=== PATIENT | male | born 1945 | race Caucasian/White ===

== ENCOUNTER 2024-03-22 13:13 | Inpatient (IN) | payer OTHER ==
[~2024-03-22] VITALS: Ht 182.9 cm; Wt 82.8 kg
[2024-03-22 01:00] VITALS: BP 137/71; PULSE 50; RESP 18; TEMP 97.6; O2SAT 94
[~2024-03-22 13:13] MED LIST: AMLO1TAB22 PO; ENAL1TAB42 PO; GEMF-66 PO; HYDR-4833 PO; LEV500T PO; METF-370 PO; SIMV40TA18 PO
--- NOTE | 2024-03-22 13:34 | ED.PDOC ---
HPI Comments 78Y M with PMHx DM, HTN, HLD, cholecystectomy, and tonsillectomy presents to ED for chief complaint chest pain x2hrs. Pt states pain began while at rest and describes it as "being sore". Pt denies SOB, nausea, vomiting, and diarrhea. No known allergies. Chief Complaint: Chest Pain Time Seen by MD: 13:25 Primary Care Provider: FARIDAO Reviewed Notes: Medications, Allergies Allergies: Coded Allergies: NO KNOWN ALLERGIES (Unverified , 03/06/14) Home Meds Active Scripts Levofloxacin (LEVAQUIN TABLET) 500 Mg Tb, 500 MG PO DAILY, #9 TAB Prov:MERCEDES WATERS MD 04/04/14 Reported Medications Hydrocodone-Acetaminophen ([place] 5/325MG) 1 Tab Tb, 1 TAB PO Q6HP PRN, #20 TAB 04/04/14 Hydrocodone-Acetaminophen ([place] 5/325MG) 1 Tab Tb, 1 TAB PO Q6HP PRN, #20 TAB 04/04/14 Hydrocodone-Acetaminophen ([place] 5/325MG) 1 Tab Tb, 1 TAB PO Q6HP PRN, #20 TAB 04/04/14 Simvastatin (Simvastatin) 40 Mg Tab, 40 MG PO DAILY for 30 Days 04/03/14 Gemfibrozil (Gemfibrozil) 600 Mg Tab, 600 MG PO BID for 30 Days 04/03/14 Metformin Hydrochloride (Metformin Hcl) 500 Mg Tab, 500 MG PO IBID for dm2 for 30 Days, MG 04/03/14 Amlodipine Besylate (Amlodipine Besylate) 5 Mg Tab, 10 MG PO DAILY for htn for 30 Days, MG 04/03/14 Enalapril Maleate (Enalapril Maleate) 2.5 Mg Tab, 10 MG PO DAILY for 30 Days, MG 04/03/14 Information Source: Patient Mode of Arrival: Ambulatory Severity: Mild Timing: Hours Duration: Since onset Location: Chest (L) Radiation: No Radiation Quality: Other (sore) Onset: At Rest Cardiac Risk Factors: Hyperlipidemia, HTN, Diabetes PE Risk Factors: None History of: None Modifying Factors: Nothing Associated Signs and Symptoms: None Past Medical History PAST MEDICAL HISTORY: DM, High Lipids, HTN Surgical History: Cholecystectomy, Tonsillectomy Family History Family History: Unobtainable Social History Smoker: Non-Smoker Alcohol: Occasionally Drugs: Denies Drug Use Lives In: Home Constitutional: denies: chills, diaphoresis, fatigue, fever, malaise, sweats, weakness, others EENTM: denies: blurred vision, double vision, ear bleeding, ear discharge, ear drainage, ear pain, ear ringing, eye pain, eye redness, hearing loss, mouth pain, mouth swelling, nasal discharge, nose bleeding, nose congestion, nose pain, photophobia, tearing, throat pain, throat swelling, voice changes, others Respiratory: denies: cough, hemoptysis, orthopnea, SOB at rest, shortness of breath, SOB with excertion, stridor, wheezing, others Cardiovascular: reports: chest pain; denies: dizzy spells, diaphoresis, Dyspnea on exertion, edema, irregular heart beat, left arm pain, lightheadedness, palpitations, PND, syncope, others Gastrointestinal: denies: abdomen distended, abdominal pain, blood streaked bowels, constipated, diarrhea, dysphagia, difficulty swallowing, hematemesis, melena, nausea, poor appetite, poor fluid intake, rectal bleeding, rectal pain, vomiting, others Genitourinary: denies: burning, dysuria, flank pain, frequency, hematuria, incontinence, penile discharge, penile sore, pain, testicle pain, testicle swelling, urgency, others Neurological: denies: dizziness, fainting, headache, left sided numbness, left sided weakness, numbness, paresthesia, pre-existing deficit, right sided numbness, right sided weakness, seizure, speech problems, tingling, tremors, weakness, others Musculoskeletal: denies: back pain, gout, joint pain, joint swelling, muscle pain, muscle stiffness, neck pain, others Integumetry: denies: bruises, change in color, change in hair/nails, dryness, laceration, lesions, lumps, rash, wounds, others Allergic/Immunocompromised: denies: Difficulty Healing, Frequent Infections, Hives, Itching, others Hematologic/Lymphatic: denies: anemia, blood clots, easy bleeding, easy bruising, swollen glands, others Endocrine: denies: excessive hunger, excessive sweating, excessive thirst, excessive urination, flushing, intolerance to cold, intolerance to heat, unexp lained weight gain, unexplained weight loss, others Psychiatric: denies: anxiety, bipolar disorder, depression, hopeless, panic disorder, schizophrenia, sleepless, suicidal, others All Other Systems: Reviewed and Negative Physical Exam General Appearance: No Apparent Distress, Normal HEENT: Normal ENT Inspection, Pharynx Normal, TMs Normal Neck: Full Range of Motion, Non-Tender, Normal, Normal Inspection Respiratory: Chest Non-Tender, Lungs Clear, No Accessory Muscle Use, No Respiratory Distress, Normal Breath Sounds Cardiovascular: No Edema, No JVD, No Murmur, No Gallop, Normal Peripheral Pulse s, Regular Rate/Rhythm Breast Exam: Deferred Gastrointestinal: No Organomegaly, Non Tender, No Pulsatile Mass, Normal Bowel Sounds, Soft Genitalia: Deferred Pelvic: Deferred Rectal: Deferred Extremities: No calf tenderness, Normal capillary refill, Normal inspection, Normal range of motion, Non-tender, No pedal edema Musculoskeletal : Apperance: Normal Neurologic: Alert, classics teacher II-XII nml as Tested, No Motor Deficits, Normal Affect, Normal Mood, No Sensory Deficits Cerebellar Function: Normal Reflexes: Normal Skin: Dry, Normal Color, Warm Lymphatic: No Adenopathy Was a procedure done? Was a procedure done?: No CP Differential Dx Differential Diagnosis: Electrolyte Disorder, Heart Failure X-Ray, Labs, Meds, VS Vital Signs Date Time Temp Pulse Resp B/P (MAP) Pulse Ox O2 Delivery O2 Flow Rate FiO2 03/22/24 16:18 97.4 46 18 138/71 (93) 99 97.4 03/22/24 14:04 49 03/22/24 13:19 97.8 49 18 158/80 (106) 96 Lab Test 03/22/24 14:32 03/22/24 13:29 Range/Units Troponin I High Sensitivity 4 4 </=54 ng/L White Blood Count 7.1 4.4-10.8 10^3/uL Red Blood Count 4.76 4.5-5.90 10^6/uL Hemoglobin 14.5 13.5-17.5 g/dL Hematocrit 43.3 41.0-53.0 % Mean Corpuscular Volume 90.8 80.0-100.0 fL Mean Corpuscular Hemoglobin 30.4 28.0-32.0 pg Mean Corpuscular Hemoglobin Concent 33.4 32.0-36.0 g/dL Red Cell Distribution Width 12.9 11.8-14.3 % Platelet Count 190 140-450 10^3/uL Mean Platelet Volume 7.2 6.9-10.8 fL Neutrophils (%) (Auto) 60.3 37.0-80.0 % Lymphocytes (%) (Auto) 23.3 10.0-50.0 % Monocytes (%) (Auto) 12.1 H 0.0-12.0 % Eosinophils (%) (Auto) 3.5 0.0-7.0 % Basophils (%) (Auto) 0.8 0.0-2.0 % Neutrophils # (Auto) 4.3 1.6-8.6 10 ^3/uL Lymphocytes # (Auto) 1.7 0.4-5.4 10 ^3/uL Monocytes # (Auto) 0.9 0-1.3 10 ^3/uL Eosinophils # (Auto) 0.2 0-0.8 10 ^3/uL Basophils # (Auto) 0.1 0-0.2 10 ^3/uL Nucleated Red Blood Cells 0.0 % Sodium Level 143 136-145 mmol/L Potassium Level 4.3 3.5-5.1 mmol/L Chloride Level 110 H 98-107 mmol/L Carbon Dioxide Level 24 20-31 mmol/L Anion Gap 9 5-15 Blood Urea Nitrogen 10 9-23 mg/dL Creatinine 1.25 0.700-1.30 mg/dL Glomerular Filtration Rate Calc 59 >90 mL/min BUN/Creatinine Ratio 8.0 L 10.0-20.0 Serum Glucose 103 74-106 mg/dL Calcium Level 10.6 H 8.7-10.4 mg/dL Total Bilirubin 0.4 0.2-1.0 mg/dL Aspartate Amino Transferase (AST) 24 13-40 U/L Alanine Aminotransferase (ALT) 21 7-40 U/L Alkaline Phosphatase 104 46-116 U/L Total Protein 7.1 5.7-8.2 g/dL Albumin 4.3 3.2-4.8 g/dL Time of 1ST Reevaluation: 13:55 Reevaluation 1ST: Unchanged Time of 2ND Reevaluation: 17:10 Reevaluation 2ND: Improved Patient Education/Counseling: Diagnosis, Treatment, Prognosis, Need For Follow Up Family Education/Counseling: No Family Present Additional Information Tests ordered and results reviewed: CBC, CMP, Troponin Independent historians include: None. Dr. Mccallum interpreted each of the tests and agrees with the result. Results and treatment discussed with the pt and medical personnel. Departure 1 Departure Time of Disposition: 17:09 Impression: Primary Impression: Unstable angina Additional Impression: Bradycardia Disposition: ADMITTED INPATIENT Admit to: Tele Condition: Stable Critical Care Note Critical Care Time?: Yes (55 min-critical care time only) Critical care comment: due to the real possibility of patient's condition deteriorating, his care requi res my highest attention and readiness to intervene. i assessed the patient, ordered the proper tests and treatments, reassessed him for response, formulated a plan, discussed it with medical personnel, and consultants,. total time include more than 50% face to face contact and does not include any procedures Stability Stability form required: No Heart Score Heart Score: Heart Score Response (Comments) Value History Highly Suspicious 2 EKG Repolarization Disturb 1 Age >65 2 Risk Factors >3 or Hx ASHD 2 Troponin Normal limit 0 Total 7 I personally scribed for JESSIE MCCALLUM MD ([email or web address]) on 03/22/24 at 13:34. Electronically submitted by Marj Diaz ([facility]). JESSIE MCCALLUM MD Mar 22, 2024 13:34
[2024-03-22 13:50] LABS: Basophils # (auto) 0.1 10 ^3/uL (0-0.2); Basophils % (auto) 0.8 % (0.0-2.0); Eosinophils # (auto) 0.2 10 ^3/uL (0-0.8); Eosinophils % (auto) 3.5 % (0.0-7.0); Hematocrit 43.3 % (41.0-53.0); Hemoglobin 14.5 g/dL (13.5-17.5); Lymphocytes # (auto) 1.7 10 ^3/uL (0.4-5.4); Lymphocytes % (auto) 23.3 % (10.0-50.0); Mean Corpuscular Hemoglobin 30.4 pg (28.0-32.0); Mean Corpuscular Hgb Conc. 33.4 g/dL (32.0-36.0); Mean Corpuscular Volume 90.8 fL (80.0-100.0); Monocytes # (auto) 0.9 10 ^3/uL (0-1.3); Monocytes % (auto) 12.1 % (0.0-12.0); Neutrophils # (auto) 4.3 10 ^3/uL (1.6-8.6); Neutrophils % (auto) 60.3 % (37.0-80.0); Platelet Count (auto) 190 10^3/uL (140-450); Red Blood Cells 4.76 10^6/uL (4.5-5.90); Red Cell Distribution Width 12.9 % (11.8-14.3); White Blood Cell 7.1 10^3/uL (4.4-10.8)
[2024-03-22 14:02] LABS: Alanine Aminotransferase 21 U/L (7-40); Albumin 4.3 g/dL (3.2-4.8); Alkaline Phosphatase 104 U/L (46-116); Anion Gap 9 (5-15); Aspartate Aminotransferase 24 U/L (13-40); Blood Urea Nitrogen 10 mg/dL (9-23); Calcium 10.6 mg/dL (8.7-10.4); Carbon Dioxide 24 mmol/L (20-31); Chloride 110 mmol/L (98-107); Glucose 103 mg/dL (74-106); Potassium 4.3 mmol/L (3.5-5.1); Sodium 143 mmol/L (136-145)
[2024-03-22 14:03] LABS: Bilirubin, Total 0.4 mg/dL (0.2-1.0); Total Protein 7.1 g/dL (5.7-8.2)
--- NOTE | 2024-03-22 15:49 | ECG ---
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
[2024-03-22] MEDS ORDERED: NITROGLYCERIN 0.4 MG SL TAB SL PRN (20:45)
[2024-03-22] MEDS ORDERED: ONDANSETRON HCL 4 MG/2 ML VIAL IV PRN (20:45)
[2024-03-22] MEDS ORDERED: MORPHINE SULFATE INJ 2 MG/ml SYRG IV PRN ×2 (20:45)
[2024-03-22] MEDS ORDERED: DOCUSATE SOD 100 MG CAP PO PRN (20:45)
[2024-03-22] MEDS ORDERED: HYDROcodone-ACET 5/325MG TAB PO PRN (20:45)
[2024-03-22] MEDS ORDERED: DEXTROSE (50%) 50ML SYRG IV PRN (20:45)
[2024-03-22] MEDS ORDERED: ACETAMINOPHEN 325 MG TAB PO PRN (20:45)
[2024-03-22] MEDS ORDERED: GLIP2.5T9 PO (21:07)
[2024-03-22] MEDS ORDERED: MEMA1TAB5 PO (21:07)
[2024-03-22] MEDS ORDERED: DONE1TAB88 PO (21:07)
[2024-03-22] MEDS ORDERED: GABA-1250 PO (21:07)
[2024-03-22] MEDS ORDERED: FIN5T PO (21:07)
[2024-03-22] MEDS ORDERED: SUMA100T15 PO (21:07)
--- NOTE | 2024-03-22 21:25 | DVH ---
CHEST RADIOGRAPH Indication: chest pain Technique: Single frontal view of the chest was obtained Comparison: None FINDINGS: Lines and Tubes: None Lungs: No focal consolidation. Pleura: No effusion. No pneumothorax. Cardiomediastinal contours: Unremarkable Bones: No acute osseous abnormality. IMPRESSION: No acute cardiopulmonary disease.
[2024-03-22] MEDS: ACCU-CHEK COMFORT CURVE STRIP VI SCH (21:33)
[2024-03-22] MEDS: InsuLIN REG 1unit/0.01ml Soln (100units/ml) SC SCH (21:34)
[2024-03-22 21:40] VITALS: PULSE 50; RESP 18; O2SAT 94
[2024-03-22 21:40] LABS: Basophils # (auto) 0 10 ^3/uL (0-0.2); Basophils % (auto) 0.6 % (0.0-2.0); Eosinophils # (auto) 0.2 10 ^3/uL (0-0.8); Eosinophils % (auto) 3.5 % (0.0-7.0); Hematocrit 43.1 % (41.0-53.0); Hemoglobin 14.5 g/dL (13.5-17.5); Lymphocytes # (auto) 1.7 10 ^3/uL (0.4-5.4); Lymphocytes % (auto) 27.1 % (10.0-50.0); Mean Corpuscular Hgb Conc. 33.6 g/dL (32.0-36.0); Mean Corpuscular Volume 89.2 fL (80.0-100.0); Monocytes # (auto) 0.6 10 ^3/uL (0-1.3); Monocytes % (auto) 10.1 % (0.0-12.0); Neutrophils # (auto) 3.7 10 ^3/uL (1.6-8.6); Neutrophils % (auto) 58.7 % (37.0-80.0); Nucleated Red Blood Cells % 0.1 %; Platelet Count (auto) 195 10^3/uL (140-450); Red Blood Cells 4.83 10^6/uL (4.5-5.90); Red Cell Distribution Width 12.6 % (11.8-14.3); White Blood Cell 6.3 10^3/uL (4.4-10.8)
[2024-03-22 21:41] VITALS: BP 152/66; PULSE 48; RESP 18; TEMP 97.4; O2SAT 95
[2024-03-22 21:49] LABS: Chloride 110 mmol/L (98-107); Potassium 3.9 mmol/L (3.5-5.1); Sodium 143 mmol/L (136-145)
[2024-03-22 21:50] LABS: Anion Gap 8 (5-15); Carbon Dioxide 25 mmol/L (20-31)
[2024-03-22 21:51] LABS: Calcium 10.8 mg/dL (8.7-10.4)
[2024-03-22 21:55] LABS: BUN/Creatinine Ratio 6.8 (10.0-20.0); Blood Urea Nitrogen 8 mg/dL (9-23); Glucose 79 mg/dL (74-106)
[2024-03-22 22:23] VITALS: BP 152/66; PULSE 48; RESP 18; TEMP 97.4; O2SAT 95
[2024-03-23] VITALS (7 sets, daily range): BP systolic 125–163; BP diastolic 61–89; PULSE 43–68; RESP 16–19; TEMP 97.4–98.3; O2SAT 93–95
--- NOTE | 2024-03-23 01:45 | DVHHP2 ---
MICKEY ALCAZAR MACHINE TAILER 03/23/24 0145: History of Present Illness Reason for Visit: Chest pain History of Present Illness 78-year-old male with past medical history of DM, hyperlipidemia, hypertension Presents with Left sided chest pain x 1 day. Pain is constant and dull. Began while the patient was at rest. During the ED evaluation labs unremarkable. ECG Sinus bradycardia. Patient denies fevers, chills, dizziness, shortness of breath, Palpitations, nausea, vomiting, leg swelling. 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 Endocrine: Diabetes Smoke: No ALCOHOL: none Drugs: None Lives: with Family Review of Systems Constitutional: No: Fever, Chills, Sweats, Weakness, Malaise, Other Eyes: No: Pain, Vision change, Conjunctivae inflammation, Eyelid inflammation, Other, Redness ENT: No: Ear pain, Ear discharge, Nose pain, Nose discharge, Nose congestion, Mouth pain, Mouth swelling, Throat pain, Throat swelling, Other Respiratory: No: Cough, Dry, Shortness of breath, SOB with excertion, Wheezing, Hemoptysis, Pleuritic Pain, Sputum, Wheezing, Other Cardiovascular: Chest Pain; No: Palpitations, Orthopnea, Paroxysmal Noc. Dyspnea, Edema, Lt Headedness, Other Gastrointestinal: No: Nausea, Vomiting, Abdominal Pain, Diarrhea, Constipation, Melena, Hematochezia, Other Genitourinary: No Dysuria, No Frequency, No Incontinence, No Hematuria, No Retention, No Other Musculoskeletal: No: other, neck pain, shoulder pain, arm pain, back pain, hand pain, leg pain, foot pain Skin: No: Rash, Lesions, Jaundice, Bruising, Other Neurological: No: Weakness, Numbness, Incoordination, Change in speech, Confusion, Seizures, Other Allergies: Coded Allergies: NO KNOWN ALLERGIES (Unverified , 03/06/14) Medications Current Medications Medications Dose Ordered Sig/Tika Route Start Time Stop Time Status Last Admin Dose Admin Docusate Sodium 100 mg BIDPRN PRN PO 03/22/24 20:45 Acetaminophen 650 mg Q6HP PRN PO 03/22/24 20:45 Acetaminophen/ Hydrocodone Bitart 1 tab Q6HPRN PRN PO 03/22/24 20:45 Ondansetron HCl 4 mg Q4HP PRN IV 03/22/24 20:45 Morphine Sulfate 2 mg Q4HPRN PRN IV 03/22/24 20:45 Enoxaparin Sodium 40 mg DAILY SC 03/23/24 10:00 Nitroglycerin 0.4 mg Q5MINP PRN SL 03/22/24 20:45 Morphine Sulfate 2 mg Q30M PRN IV 03/22/24 20:45 Diagnostic Test (Pha) 1 strip ACHS 03/22/24 22:00 03/22/24 21:33 1 STRIP Insulin Human Regular ACHS SC 03/22/24 22:00 Dextrose 50 ml UD PRN IV 03/22/24 20:45 Atorvastatin Calcium 40 mg DAILY PO 03/23/24 10:00 Aspirin 81 mg DAILY PO 03/23/24 10:00 Donepezil HCl 10 mg HS PO 03/23/24 22:00 Memantine 10 mg Q12HR PO 03/23/24 10:00 Exam Vital Signs Vital Signs Date Time Temp Pulse Resp B/P (MAP) Pulse Ox O2 Delivery O2 Flow Rate FiO2 03/22/24 22:23 97.4 48 18 152/66 (94) 95 97.4 General Appearance: Alert, Oriented X3, Cooperative, mild distress HEENT: Atraumatic, PERRLA, EOMI Respiratory: Clear to auscultation, Normal air movement Cardiovascular: Normal S1, Normal S2 Abdominal: Normal bowel sounds, Soft, No tenderness Extremities: No clubbing, No cyanosis, No edema Skin: No rashes, No breakdown Neuro: Normal gait, Normal speech, Strength at 5/5 X4 ext Psych/Mental Status: Mental status NL, Mood NL Labs/Xrays Labs Test 03/22/24 21:32 03/22/24 21:15 03/22/24 14:32 03/22/24 13:29 Range/Units POC Glucose 79 70-106 mg/dl White Blood Count 6.3 4.4-10.8 10^3/uL Red Blood Count 4.83 4.5-5.90 10^6/uL Hemoglobin 14.5 13.5-17.5 g/dL Hematocrit 43.1 41.0-53.0 % Mean Corpuscular Volume 89.2 80.0-100.0 fL Mean Corpuscular Hemoglobin 30.0 28.0-32.0 pg Mean Corpuscular Hemoglobin Concent 33.6 32.0-36.0 g/dL Red Cell Distribution Width 12.6 11.8-14.3 % Platelet Count 195 140-450 10^3/uL Mean Platelet Volume 7.5 6.9-10.8 fL Neutrophils (%) (Auto) 58.7 37.0-80.0 % Lymphocytes (%) (Auto) 27.1 10.0-50.0 % Monocytes (%) (Auto) 10.1 0.0-12.0 % Eosinophils (%) (Auto) 3.5 0.0-7.0 % Basophils (%) (Auto) 0.6 0.0-2.0 % Neutrophils # (Auto) 3.7 1.6-8.6 10 ^3/uL Lymphocytes # (Auto) 1.7 0.4-5.4 10 ^3/uL Monocytes # (Auto) 0.6 0-1.3 10 ^3/uL Eosinophils # (Auto) 0.2 0-0.8 10 ^3/uL Basophils # (Auto) 0 0-0.2 10 ^3/uL Nucleated Red Blood Cells 0.1 % Sodium Level 143 136-145 mmol/L Potassium Level 3.9 3.5-5.1 mmol/L Chloride Level 110 H 98-107 mmol/L Carbon Dioxide Level 25 20-31 mmol/L Anion Gap 8 5-15 Blood Urea Nitrogen 8 L 9-23 mg/dL Creatinine 1.17 0.700-1.30 mg/dL Glomerular Filtration Rate Calc 64 >90 mL/min BUN/Creatinine Ratio 6.8 L 10.0-20.0 Serum Glucose 79 74-106 mg/dL Calcium Level 10.8 H 8.7-10.4 mg/dL Troponin I High Sensitivity 4 </=54 ng/L Total Bilirubin 0.4 0.2-1.0 mg/dL Aspartate Amino Transferase (AST) 24 13-40 U/L Alanine Aminotransferase (ALT) 21 7-40 U/L Alkaline Phosphatase 104 46-116 U/L Total Protein 7.1 5.7-8.2 g/dL Albumin 4.3 3.2-4.8 g/dL Assessment/Plan Assessment/Plan Chest pain (High Heart Score) Bradycardia T2DM controlled Hypertension Dyslipidemia Plan Admit telemetry Cardiology consult. Echocardiogram. Repeat troponin level. As needed antihypertensive for optimal BP management. Continue home medications. Blood glucose checks ACHS with regular insulin moderate dosing sliding scale coverage for optimal glycemic management. GI ppx pepcid / DVT ppx lovenox Plan discussed with: Patient My Orders Orders - MICKEY ALCAZAR NP Procedure Category Date Status Time Admit ADMIT 03/22/24 Transmitted 20:36 Code Status CODE 03/22/24 Transmitted 20:36 Vital Signs RIMA 03/22/24 In Process 20:36 Review Orders With RIMA 03/22/24 In Process Adm. 20:36 Encourage Activity As RIMA 03/22/24 In Process Tolerate 20:36 Consistent DIET 03/23/24 Transmitted Carb(Ccho)Diabetes Breakfast Oxygen By Face Mask RT 03/22/24 Transmitted 20:36 Docusate Sodium PHA 03/22/24 In Process Capsule (Colace 20:45 Acetaminophen Tablet PHA 03/22/24 In Process (Tylenol Tablet) 20:45 Notify Of Changes RIMA 03/22/24 In Process From Base 20:36 Advance Directive RIMA 03/22/24 In Process 20:36 Echo 2d Mode Cardiac US 03/22/24 Logged DOP 20:36 Patient Condition ORDERS 03/22/24 Transmitted 20:36 Allergies RIMA 03/22/24 In Process 20:36 Hydrocodone-Acet PHA 03/22/24 In Process 5/325mg Tab ([place] 20:45 Ondansetron Hcl PHA 03/22/24 In Process (Zofran) 20:45 Morphine Sulfate PHA 03/22/24 In Process Injection 20:45 Enoxaparin Sodium PHA 03/23/24 In Process (Lovenox) 10:00 Sequential RIMA 03/22/24 In Process Compression Device Nitroglycerin PHA 03/22/24 In Process Sublingual (Ntrostat 20:45 Morphine Sulfate PHA 03/22/24 In Process Injection 20:45 Stat Ekg For Chest RIMA 03/22/24 In Process Pain 20:36 Notify Of Changes RIMA 03/22/24 In Process From Base 20:36 Warp Preparer For RIMA 03/22/24 In Process 24 Hours 20:36 Emergency Dysrhythmia RIMA 03/22/24 In Process Protocol 20:36 Rhythm Strips Once RIMA 03/22/24 In Process Every Shift 20:36 Oxygen By Nasal RT 03/22/24 Transmitted Cannula 20:36 Glucose Blood PHA 03/22/24 In Process (Accu-Chek Comfort 22:00 Insulin R (Human) PHA 03/22/24 In Process (Insulin R) 22:00 Dextrose 50% Syringe PHA 03/22/24 In Process 20:45 * Cardiology Consult CONS 03/22/24 Transmitted 20:36 Atorvastatin (Lipitor) PHA 03/23/24 In Process 10:00 Communication Order ORDERS 03/22/24 Transmitted 20:36 Chest Xray 1 View XY 03/22/24 Resulted 20:36 Aspirin Tablet PHA 03/23/24 In Process 10:00 Troponin-I Hs LAB 03/23/24 Logged 04:00 Troponin-I Hs LAB 03/23/24 Logged 08:00 Donepezil Tablet PHA 03/23/24 In Process (Aricept Tablet) 22:00 Memantine Tablet PHA 03/23/24 In Process (Namenda Tablet) 10:00 Date of Service: Mar 23, 2024 Billing Provider: DEMETRIUS MOREIRA MD Common Visit Codes: NOT BILLABLE DEMETRIUS MOREIRA MD 03/23/24 1559: Review of Systems Allergies: Coded Allergies: NO KNOWN ALLERGIES (Unverified , 03/06/14) Additional Comments Additional Comments Additional Comments 78-year-old male with a known history of diabetes mellitus type 2, hypertension, dyslipidemia and history plans with the hospital with the chest pain found to have 1. Chest pain rule out AL 2. Diabetes mellitus type 2 3. Hypertension 4. dyslipidemia -2D echo, cardiology consultation, discharge plan MICKEY ALCAZAR NP Mar 23, 2024 01:45 DEMETRIUS MOREIRA MD Mar 23, 2024 15:59
--- NOTE | 2024-03-23 03:46 | ECG ---
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
[2024-03-23] MEDS: FAMOTIDINE (10MG/ML) 2ML VL IV SCH (09:27)
[2024-03-23] MEDS: MEMANTINE HCL 5 MG TAB PO SCH (09:28)
[2024-03-23] MEDS: ASPirin 81 mg TAB PO SCH (09:29)
[2024-03-23] MEDS: ATORVASTATIN 20 MG TAB PO SCH (09:29)
[2024-03-23] MEDS: ENOXAPARIN SOD 40 MG/0.4 ML SYRINGE SC SCH (09:29)
[2024-03-23] MEDS: hydrALAZINE HCL 20 MG/ML VL IV PRN (16:26)
[2024-03-23] MEDS: DONEPEZIL HYDROCHLORIDE 5 MG TAB PO SCH (22:28)
[2024-03-24 01:00] VITALS: BP 147/59; PULSE 54; RESP 18; TEMP 97.7; O2SAT 96
[2024-03-24 05:00] VITALS: BP 129/73; PULSE 58; RESP 18; TEMP 98.5; O2SAT 94
[2024-03-24 08:00] VITALS: PULSE 50
[2024-03-24 09:00] VITALS: BP 168/76; PULSE 56; RESP 19; TEMP 97.6; O2SAT 91
[2024-03-24 10:03] VITALS: BP 144/76
[2024-03-24] MEDS: ADENOSINE 70 MG in GIVE UN-DILUTED 0 ML IV STA (13:09)
--- NOTE | 2024-03-24 13:46 | DVHINCON2 ---
HISTORY OF PRESENT ILLNESS: The patient is a 78-year-old gentleman accompanied by his with a history of diabetes and hypertension. He presents with left-sided chest pain for a day. This began while he was at rest. He is somewhat stoic and does not describe his symptoms very well. He has been complaining of occasional chest pressure upon exertion. He occasionally gets fluttering in his heart. No dizziness and/or syncope. He does have a history of hypertension and diabetes, which has been relatively well controlled. He has had multiple surgeries including cholecystectomy and kidney stones. SOCIAL HISTORY: He is nondrinker and a nonsmoker. 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 REVIEW OF SYSTEMS: CONSTITUTIONAL: From a constitutional standpoint negative. ENT: Negative. RESPIRATORY AND CARDIAC: As noted above with history of chest pain. GASTROINTESTINAL, GENITOURINARY AND MUSCULOSKELETAL: Negative. SKIN, NEUROLOGICAL AND ALLERGY: Negative. HEMATOLOGICALLY AND ONCOLOGICALLY: Negative. ENDOCRINOLOGICALLY: As noted above with a history of diabetes. MEDICATIONS: Listed. ALLERGIES: He has no apparent allergies. PHYSICAL EXAMINATION: GENERAL: He is awake and responsive. He is in no acute distress at this time. VITAL SIGNS: His blood pressure is 160/76 with a respiratory rate of 19. HEENT: Unremarkable. Orally well hydrated. Trachea central. NECK: Supple. Thyroid is not palpable. There is no jugular venous distention, no bruits. LUNGS: Reveal good air entry. No rales or rhonchi. HEART: Reveals a regular S1, S2, soft S4. ABDOMEN: Otherwise, unremarkable. EXTREMITIES: Reveal adequate perfusion without clubbing or cyanosis, no significant edema. NEUROLOGIC: Appears to be intact without focal neurologic deficits. INTEGUMENTARY: Otherwise within normal limits. LABORATORY DATA: WBC count 6000, hemoglobin and hematocrit are 14 and 43 respectively. Chemistry panel is otherwise unremarkable. EKG shows nonspecific changes. His BUN and creatinine are within normal limits. Troponin levels are thus far negative, no indication of myocardial injury. Echocardiographic evaluation pending. IMPRESSION: * Chest pain, rule out underlying coronary artery disease. * Hypertension. RECOMMENDATIONS: The patient will undergo stress testing and echocardiographic evaluation. We will follow up subsequent to initial testing performed. Reinaldo Sanchez MD GAP/VIS TID: [id number] RECEIPT: [id number]
--- NOTE | 2024-03-24 15:47 | DVHSR ---
APPROVED REPORT Exam: Nuclear Stress Test BMI: 0 Stress Test Details HR Max Heart Rate (APMHR): 142.123523 bpm Target HR (85% APMHR): 120.006743 bpm BP ECG Stress ECG Conclusion Resting ECG shows normal sinus rhythm with left anterior hemiblock.. At peak stress level no dynamic EKG changes was noted. Resting images shows near homogeneous uptake of radioactive tracer throughout the myocardium without evidence of myocardial infarction. Stress images shows near homogeneous uptake of radioactive tracer throughout the myocardium without e vidence of myocardial ischemia. Well-preserved left ventricular systolic function at 66%. Impression: Negative stress test for ischemia, low risk study NM EXAM: Myocardial Perfusion REST/STRESS Imaging Protocol: Rest Tc-99m/Stress Tc-99m 1 day Resting Data Rest SPECT myocardial perfusion imaging was performed in supine position 60 minutes following the int ravenous injection of 10.8 mCi of Tc-99m Sestamibi. Time of rest injection: 1135 Time of rest imagin Administration Route: IV Administration Site: Left Arm Pharmacologic Stress Pharmacologic stress test was performed by injecting Adenosine mg IV push followed by the intravenou s injection of 31.3 mCi of Tc-99m Sestamibi. Time of stress injection: 1305 Time of stress imagin Administration Route: IV Administration Site: Left Arm Gated Stress SPECT was performed 60 minutes after stress injection. The images were gated to evaluate regional wall motion and calculate left ventricular ejection fracti on. Stress only was performed in the Supine position. Nuclear Conclusion ECG Findings: negative for ischemia Clinical Findings: negative for ischemia Nuclear Findings: negative for ischemia Exercise Capacity: not assessed Left Ventricular Function: normal Risk Study: low Resting ECG shows normal sinus rhythm with left anterior hemiblock.. At peak stress level no dynamic EKG changes was noted. Resting images shows near homogeneous uptake of radioactive tracer throughout the myocardium without evidence of myocardial infarction. Stress images shows near homogeneous uptake of radioactive tracer throughout the myocardium without e vidence of myocardial ischemia. Well-preserved left ventricular systolic function at 66%. Impression: Negative stress test for ischemia, low risk study
--- NOTE | 2024-03-24 16:41 | DVHDS2 ---
Discharge Summary Date of Admission Mar 22, 2024 at 20:36 Date of Discharge: Mar 24, 2024 Labs/Diagnostic Data: Laboratory Results Test 03/24/24 16:28 03/23/24 08:38 03/22/24 21:15 03/22/24 13:29 POC Glucose 129 mg/dl (70-106) Troponin I High Sensitivity 5 ng/L (</=54) White Blood Count 6.3 10^3/uL (4.4-10.8) Red Blood Count 4.83 10^6/uL (4.5-5.90) Hemoglobin 14.5 g/dL (13.5-17.5) Hematocrit 43.1 % (41.0-53.0) Mean Corpuscular Volume 89.2 fL (80.0-100.0) Mean Corpuscular Hemoglobin 30.0 pg (28.0-32.0) Mean Corpuscular Hemoglobin Concent 33.6 g/dL (32.0-36.0) Red Cell Distribution Width 12.6 % (11.8-14.3) Platelet Count 195 10^3/uL (140-450) Mean Platelet Volume 7.5 fL (6.9-10.8) Neutrophils (%) (Auto) 58.7 % (37.0-80.0) Lymphocytes (%) (Auto) 27.1 % (10.0-50.0) Monocytes (%) (Auto) 10.1 % (0.0-12.0) Eosinophils (%) (Auto) 3.5 % (0.0-7.0) Basophils (%) (Auto) 0.6 % (0.0-2.0) Neutrophils # (Auto) 3.7 10 ^3/uL (1.6-8.6) Lymphocytes # (Auto) 1.7 10 ^3/uL (0.4-5.4) Monocytes # (Auto) 0.6 10 ^3/uL (0-1.3) Eosinophils # (Auto) 0.2 10 ^3/uL (0-0.8) Basophils # (Auto) 0 10 ^3/uL (0-0.2) Nucleated Red Blood Cells 0.1 % Sodium Level 143 mmol/L (136-145) Potassium Level 3.9 mmol/L (3.5-5.1) Chloride Level 110 mmol/L (98-107) Carbon Dioxide Level 25 mmol/L (20-31) Anion Gap 8 (5-15) Blood Urea Nitrogen 8 mg/dL (9-23) Creatinine 1.17 mg/dL (0.700-1.30) Glomerular Filtration Rate Calc 64 mL/min (>90) BUN/Creatinine Ratio 6.8 (10.0-20.0) Serum Glucose 79 mg/dL (74-106) Calcium Level 10.8 mg/dL (8.7-10.4) Total Bilirubin 0.4 mg/dL (0.2-1.0) Aspartate Amino Transferase (AST) 24 U/L (13-40) Alanine Aminotransferase (ALT) 21 U/L (7-40) Alkaline Phosphatase 104 U/L (46-116) Total Protein 7.1 g/dL (5.7-8.2) Albumin 4.3 g/dL (3.2-4.8) Other Laboratory Tests 03/22/24 21:15 Final Diagnosis/Problems List 78-year-old male with a known history of diabetes mellitus type 2, hypertension, dyslipidemia and history plans with the hospital with the chest pain found to have 1. Chest pain rule out LA 2. Diabetes mellitus type 2 3. Hypertension 4. dyslipidemia Discharge Disposition: Home Discharge Instruct/Medications Diet: Cardiac 2g Na,low cholest Activity: No Restrictions, As Tolerated Follow Up/Referral: Follow up with the PCP in 1-2 weeks follow up with the Cardiology as an outpatient in 1-2 weeks Medications: Resume home medications Discharge Statement: "Patient was advised to return to the ER or call 911 if any headaches, dizziness, shortness of breath, chest pain, abdominal pain, bleeding, fevers, or worsening of medical condition. Patient was counseled about treatment plan, medications, possible side effects, patientverbalized understanding. All questions were answered to the best of my ability. This discharge took greater then 30 minutes in planning, reviewing documentation, counseling the patient, and discussing with other team members." ASSESSMENT ASSESSMENT Assessment 78-year-old male with a known history of diabetes mellitus type 2, hypertension, dyslipidemia and history plans with the hospital with the chest pain found to have 1. Chest pain rule out LA 2. Diabetes mellitus type 2 3. Hypertension 4. dyslipidemia DEMETRIUS MOREIRA MD Mar 24, 2024 16:41
[2024-03-24 16:42] VITALS: BP 127/68; PULSE 52; RESP 17; TEMP 97.8; O2SAT 93
--- NOTE | 2024-03-25 08:38 | DVHSR ---
APPROVED REPORT EXAM: Two-dimensional and M-mode echocardiogram with Doppler and color Doppler. Blood Pressure: 145/89 mmHg INDICATION Chest Pain RISK FACTORS Height: 6'0", Weight: 182 DIMENSIONS LVDd4.2 (3.8-5.7cm)LA (2D)3.5 (1.9-4.0cm)Aortic Root3.7 (2.0-3.7cm) LVDs2.9 (2.5-4.0cm)LA (MM) (1.9-4.0cm)Aortic Cusp Exc1.8 (1.5-2.0cm) EF (%) 60.0 (55-70%)Rt. Atrium3.1 (1.9-4.0cm)Asc. Aorta cm IVSd1.1 (0.7-1.1cm)RV (D)3.5 (1.8-2.4cm) PWd1.1 (0.7-1.1cm) Mitral Valve MitralMitral Stenosis E wave0.52m/sMV Mean GR.mmHg A wave0.68m/sMV Peak GR.mmHg E/A ratio0.82D MVAcm2 DECEL [id number] 1/2 [place] Aortic Valve Aortic ValveAortic Stenosis V11.14m/Yazan Mean GR.4mmHg V21.32m/Yazan Peak GR.7mmHg LVOT Diameter2.0 (1.8-2.4cm)Doppler AVA2.71cm2 Pulmonic Valve V21.02m/s Other Information Quality : Rhythm : Bradycardia Conclusion Technically good study. Sinus rhythm. Mild aortic root enlargement. Mild dilation of the sinuses of Valsalva. Valves appear to be structurally normal. EF of 60% with normal RV function. Dopplers unremarkable. No pericardial effusion masses or vegetations discernible.
== END 2024-03-24 18:10 | disposition home health service (06) | DRG 282 ==
LOC: ER 13:13 → TELE 20:36 → TELE-WESTW 23:22
PROVIDERS: ADMIT Nurse Practitioner Family; ATTEND Internal Medicine
DX: I21.9 Acute myocardial infarction, unspecified (principal); E78.5 Hyperlipidemia, unspecified; I20.0 Unstable angina; F03.90 Unspecified dementia, unspecified severity, without behavioral disturbance, psychotic disturbance, mood disturbance, and anxiety; I10 Essential (primary) hypertension; E11.9 Type 2 diabetes mellitus without complications; Z90.49 Acquired absence of other specified parts of digestive tract; Z87.442 Personal history of urinary calculi; Z79.4 Long term (current) use of insulin
CPT/HCPCS: 36415; 71045; 78452; 80048; 80053; 82962; 84484; 85025; 93005; 93017; 93306; 97163; 99291; G0378; J0153; J3490